=== PATIENT | female | born 1935 | race Caucasian/White ===

== ENCOUNTER → 2019-10-22 09:49 | Outpatient (BNVA) | payer MEDICARE, OTHER, SELFPAY | PROVIDERS: Visit Provider Family Medicine | DX: I10 Essential (primary) hypertension (principal); E03.9 Hypothyroidism, unspecified; E55.9 Vitamin D deficiency, unspecified | CPT/HCPCS: 80053; 80061; 82306; 84443; 85025 ==

== ENCOUNTER → 2020-04-08 10:20 | Outpatient (BNVA) | payer MEDICARE, OTHER, SELFPAY | PROVIDERS: PCP Nurse Practitioner Family; Visit Provider Nurse Practitioner Family | DX: E78.5 Hyperlipidemia, unspecified (principal); E03.9 Hypothyroidism, unspecified; E55.9 Vitamin D deficiency, unspecified; R73.9 Hyperglycemia, unspecified; J44.9 Chronic obstructive pulmonary disease, unspecified; R09.02 Hypoxemia | CPT/HCPCS: 80053; 80061; 82306; 82607; 83036; 84443; 85025 ==

== ENCOUNTER 2020-07-13 15:19 | Emergency (ER) | payer MEDICARE, OTHER, SELFPAY ==
[2020-07-13 15:25] VITALS: BP 138/99; PULSE 73; RESP 36; TEMP 36.2; O2SAT 96; BMI 33.2
--- NOTE | 2020-07-13 15:51 | XR_ITS ---
WS: [id number] XR chest 1V portable [id number] REASON FOR EXAM: SOB FINDINGS: Compared to previous examination on 07/31/2018 the appearance of the right lung is unchanged. On the left there is a moderate-sized effusion. There are consolidative changes in the left lower lung adjac ent to the effusion. Moderate degenerative changes in both shoulders and moderate degenerative spondylosis in the thoracic spine. XR/XR chest 1V portable [id number] IMPRESSION: No recent comparison examination. Moderate left pleural effusion and lung conso lidation of unknown chronicity.
--- NOTE | 2020-07-13 16:08 | ED_ITS ---
HPI - SOB/Dyspnea General: Chief Complaint: Shortness of Breath/Dyspnea Stated Complaint: SOB Time Seen by Provider: 07/13/20 15:25 Source: patient and EMS Mode of arrival: EMS Limitations: no limitations History of Present Illness: HPI Narrative: Patient was brought in by ambulance with complaints of shortness of breath. Most of the history was obtained from EMS and later from her son. The patient has apparently been complaining of shortness of breath for about 4 days. She is normally on oxygen at about 2 to 3 L/min. The onset and that she has had a fever. EMS arrived at the patient's residence she was not using her oxygen and her oxygen saturations were 72% on room air. She was placed on oxygen and her saturations increased into the mid 90s on 4 L of oxygen per minute. Patient states that she is short of breath, admits to using oxygen at home but did not tell me why she was not wearing it today. She also denies any pain at this time. Patient appears mildly confused but she is oriented to place and person. MD elicited complaint: shortness of breath and cough Associated symptoms: Deny abdominal pain, fever(s), nausea, palpitations, polydipsia, polyuria or vomiting Review of Systems General: Reports: 10 or more systems reviewed and unremarkable except in HPI and below Const: Denies: fever(s), chills or body aches Eyes: Denies: change in vision or blurry vision ENMT: Denies: throat pain, enlarged tonsils, odynophagia, hoarseness, mouth pain or swelling of lips/tongue Card: Denies: palpitations, irregular heart rhythm, edema or swelling of feet/ankles Resp: Reports: dyspnea; Denies: productive cough or non-productive cough GI: Denies: abdominal pain, nausea or vomiting : Denies: flank pain, difficulty voiding, dysuria, urinary frequency, urinary urgency or urinary hesitancy Musc: Denies: neck pain, back pain or extremity swelling Skin/Breast: Denies: rash, pruritus or erythema Neuro: Denies: headache(s), numbness in extremities or weakness in extremities Endo: Denies: polyuria, polydipsia or tired all the time FOR[facility]LY [facility] ED PFSH: Medical History (Reviewed 07/14/20 @ 02:05 by Charo Anguiano MD, [facility]) Alopecia Aortic stenosis COPD (chronic obstructive pulmonary disease) DJD (degenerative joint disease) Enrolled in chronic care management Fatty infiltration of liver Glaucoma Hx of small bowel obstruction Hyperlipidemia Hypothyroid Memory impairment KATHARINE (obstructive sleep apnea) Vitamin D deficiency Surgical History (Reviewed 07/14/20 @ 02:05 by Charo Anguiano MD, [facility]) Hx of hernia repair Family History (Reviewed 07/14/20 @ 02:05 by Charo Anguiano MD, [facility]) Other No pertinent family history Social History (Reviewed 07/14/20 @ 02:05 by Charo Anguiano MD, [facility]) Smoking and tobacco status: former smoker Quit status (tobacco): has quit using tobacco Year quit tobacco: 1999 Former quit date comment: PPD x 30 + yrs Second hand smoke exposure: No Alcohol intake: never Lives independently: Yes Household members: spouse Housing: House Marital status: Current occupational status: retired History of recent travel: No Current gender identity: Female Physical Exam Const: COMMON NORMALS: no acute distress, average body habitus, patient oriented x3, no limitations, healthy appearing, alert and well nourished HENMT: COMMON NORMALS: normocephalic, atraumatic and moist oral mucous membranes HEAD & SCALP: normocephalic and atraumatic Eye: COMMON NORMALS: Equal, round and reactive pupils present, EOMs intact bilaterally, conjunctivae normal and no scleral icterus CONJUNCTIVA: Yes conjunctivae normal PUPIL: Yes Equal, round and reactive pupils present Neck/C-Spine: COMMON NORMALS: no meningeal signs and no JVD Resp: COMMON NORMALS: normal respiratory effort, No retractions, No use of accessory muscles and percussion normal AUSCULTATION: diminished lung sounds PERCUSSION: percussion normal Cardio: COMMON NORMALS: no JVD, regular rate, regular rhythm, S1 normal heart sound present, S2 normal heart sound present, No gallops present (Cardio), No clicks present (Cardio), No murmurs present (Cardio), No rub (Cardio) and Peripheral pulses 2+ throughout RATE: regular rate RHYTHM: regular rhythm HEART SOUNDS: S1 normal heart sound present and S2 normal heart sound present PERIPHERAL PULSES: Peripheral pulses 2+ throughout GI: COMMON NORMALS: Normal to inspection, nondistended, normoactive bowel sounds present, Soft to palpation, non-tender, No hepatosplenomegaly present, no masses and no bruits PALPATION: Yes Soft to palpation and Yes No hepatosplenomegaly present Extremity: COMMON NORMALS: normal to inspection, full ROM, capillary refill normal, no calf tenderness and no pedal edema Neuro: COMMON NORMALS: patient oriented x3 SENSORIUM/ORIENTATION: Yes alert MENINGEAL SIGNS: Yes no meningeal signs Skin: COMMON NORMALS: no rashes or lesions noted, no wounds, turgor normal, no jaundice, no petechiae and no mottling GENERAL SKIN EXAM: no rashes or lesions noted and turgor normal Procedures Intubation Time out performed: Yes sedative: Etomidate Mg Given: 20 paralytic: Succinylcholine Mg Given: 140 Laryngoscope: Olivia Assist Device Used: other (Video-assisted) ET Tube Size: 8 ET Tube Uncuffed: Yes Tube Secured Depth (cm): 20 Tube Secured Location: lips Tube Placement Confirmation: visualized tube passing through cords, equal breath sounds bilaterally, no breath sounds over epigastrium and confirmation by capnometry Patient Tolerated Procedure: well Intubation Complications: none Course ED course: 84-year-old female patient who presented to the emergency department with difficulty breathing. Patient has a history of COPD and she gradually got more drowsy in the emergency department. Blood gas obtained showed she was in hypercapnic respiratory failure and she was emergently intubated and mechanically ventilated. Because there are no hospital beds available in this hospital she was transferred to [facility] for further evaluation and management in the ICU. Prior to intubation asked her son if he agreed to intubate and placed on mechanical ventilation, he wanted not to be a full code, and I agreed for us to do this. Consultations: Consultation #1: Discussed the patient with , hospitalist at [facility] and he kindly accepted the patient to his service Vital Signs: Vital signs: Vital Signs Temperature 98.2 F 07/14/20 01:22 Pulse Rate 65 07/14/20 01:22 Respiratory Rate 17 07/14/20 01:22 Blood Pressure 116/73 07/14/20 01:22 Pulse Oximetry 93 07/14/20 01:22 MDM - SOB/Dyspnea MDM Narrative: Medical decision making narrative: 84-year-old female patient who presented with COPD exacerbation and acute respiratory failure. She was intubated and mechanically ventilated and transferred to [facility] for further evaluation and management. Medical Records: Attestation: I reviewed the patient's medical records. Lab Data: Attestation: I reviewed the patient's lab results. Labs: Lab Results 07/13/20 07/13/20 07/13/20 Range/Units 16:22 16:22 16:22 WBC Cancelled Corrected WBC Cancelled RBC Cancelled Hgb Cancelled Hct Cancelled MCV Cancelled MCH Cancelled MCHC Cancelled RDW Cancelled Plt Count Cancelled MPV Cancelled Gran % Cancelled Neut % (Auto) Cancelled Lymph % (Auto) Cancelled Hays % (Auto) Cancelled Eos % (Auto) Cancelled Baso % (Auto) Cancelled Neut # (Auto) Cancelled Lymph # (Auto) Cancelled [place]ays # (Auto) Cancelled Eos # (Auto) Cancelled Baso # (Auto) Cancelled Absolute Gran (aut o) Cancelled Nucleated RBC % (a uto) Cancelled Nucleated RBCs # Cancelled Specimen Type Sample Site ABG pH (7.35-7.45) ABG pCO2 (35-45) mmHg ABG pO2 (80.0-100.0) mmH g ABG HCO3 (22-26) mmol/L ABG Base Excess (-2.0-2.0) mmol/ L Clement Test Hematocrit (37-47) % O2 Delivery Device O2 Liters/Min % Mechanical Rate FiO2 % Tidal Volume PEEP cmH20 Cost Accountant ID Sodium 139 (136-145) mmol/L Potassium 4.9 (3.5-5.1) mmol/L Chloride 98 (98-107) mmol/L Carbon Dioxide 35 H (22-29) mmol/L Anion Gap 10.9 (5-19) BUN 9 (8-23) mg/dL Creatinine 0.6 (0.5-0.9) mg/dL GFR Calculation Not Reportable Glucose 127 H (65-115) mg/dL Calculated Osmolal ity 288 (285-295) mOsm/k g Lactic Acid 0.8 (0.5-2.2) mmol/L Calcium 8.7 (8.5-10.5) mg/dL Total Bilirubin 0.3 (0.15-1.2) mg/dL AST 17 (0-32) U/L ALT 17 (0-33) U/L Alkaline Phosphata se 62 (35-105) IU/L Troponin T Baselin e (0-10) ng/L Troponin T 120 Min grand traverse (0-10) ng/L Delta Troponin T (0-10) ABS# NT-Pro-B Natriuret Pep 4743 H (0-450) pg/mL Total Protein 6.7 (6.6-8.7) g/dL Albumin 3.9 (3.5-5.2) g/dL Globulin 2.8 (1.3-4.6) g/dL Influenza Type A A g (Negative) Influenza Type B A g (Negative) SARS-CoV-2 Ag (Rap id) (Negative) 07/13/20 07/13/20 07/13/20 Range/Units 16:22 16:32 16:32 WBC Corrected WBC RBC Hgb Hct MCV MCH MCHC RDW Plt Count MPV Gran % Neut % (Auto) Lymph % (Auto) Hays % (Auto) Eos % (Auto) Baso % (Auto) Neut # (Auto) Lymph # (Auto) Hays # (Auto) Eos # (Auto) Baso # (Auto) Absolute Gran (aut o) Nucleated RBC % (a uto) Nucleated RBCs # Specimen Type Sample Site ABG pH (7.35-7.45) ABG pCO2 (35-45) mmHg ABG pO2 (80.0-100.0) mmH g ABG HCO3 (22-26) mmol/L ABG Base Excess (-2.0-2.0) mmol/ L Clement Test Hematocrit (37-47) % O2 Delivery Device O2 Liters/Min % Mechanical Rate FiO2 % Tidal Volume PEEP cmH20 Cost Accountant ID Sodium (136-145) mmol/L Potassium (3.5-5.1) mmol/L Chloride (98-107) mmol/L Carbon Dioxide (22-29) mmol/L Anion Gap (5-19) BUN (8-23) mg/dL Creatinine (0.5-0.9) mg/dL GFR Calculation Glucose (65-115) mg/dL Calculated Osmolal ity (285-295) mOsm/k g Lactic Acid (0.5-2.2) mmol/L Calcium (8.5-10.5) mg/dL Total Bilirubin (0.15-1.2) mg/dL AST (0-32) U/L ALT (0-33) U/L Alkaline Phosphata se (35-105) IU/L Troponin T Baselin e 20 H (0-10) ng/L Troponin T 120 Min grand traverse (0-10) ng/L Delta Troponin T (0-10) ABS# NT-Pro-B Natriuret Pep (0-450) pg/mL Total Protein (6.6-8.7) g/dL Albumin (3.5-5.2) g/dL Globulin (1.3-4.6) g/dL Influenza Type A A g Negative (Negative) Influenza Type B A g Negative (Negative) SARS-CoV-2 Ag (Rap id) Negative (Negative) 07/13/20 07/13/20 07/13/20 Range/Units 18:37 21:34 23:05 WBC 9.6 Corrected WBC RBC 4.99 Hgb 14.6 Hct 50.9 H MCV 102.0 H MCH 29.3 MCHC 28.7 L RDW 13.3 Plt Count 189 MPV 9.5 Gran % Neut % (Auto) 90.1 Lymph % (Auto) 5.5 Hays % (Auto) 1.6 Eos % (Auto) 0.2 Baso % (Auto) 0.4 Neut # (Auto) 8.62 H Lymph # (Auto) 0.5 L Hays # (Auto) 0.2 Eos # (Auto) 0.0 Baso # (Auto) 0.0 Absolute Gran (aut o) Nucleated RBC % (a uto) 0 Nucleated RBCs # 0.0 Specimen Type Arterial Sample Site Brachial, right ABG pH 7.13 L* (7.35-7.45) ABG pCO2 112.0 H* (35-45) mmHg ABG pO2 82.7 (80.0-100.0) mmH g ABG HCO3 37.3 H (22-26) mmol/L ABG Base Excess 3.9 H (-2.0-2.0) mmol/ L Clement Test N/a Hematocrit 44.4 (37-47) % O2 Delivery Device Nc O2 Liters/Min 4.0 % Mechanical Rate FiO2 % Tidal Volume PEEP cmH20 Cost Accountant ID Harkr Sodium (136-145) mmol/L Potassium (3.5-5.1) mmol/L Chloride (98-107) mmol/L Carbon Dioxide (22-29) mmol/L Anion Gap (5-19) BUN (8-23) mg/dL Creatinine (0.5-0.9) mg/dL GFR Calculation Glucose (65-115) mg/dL Calculated Osmolal ity (285-295) mOsm/k g Lactic Acid (0.5-2.2) mmol/L Calcium (8.5-10.5) mg/dL Total Bilirubin (0.15-1.2) mg/dL AST (0-32) U/L ALT (0-33) U/L Alkaline Phosphata se (35-105) IU/L Troponin T Baselin e (0-10) ng/L Troponin T 120 Min grand traverse 19.36 H (0-10) ng/L Delta Troponin T -0.64 L (0-10) ABS# NT-Pro-B Natriuret Pep (0-450) pg/mL Total Protein (6.6-8.7) g/dL Albumin (3.5-5.2) g/dL Globulin (1.3-4.6) g/dL Influenza Type A A g (Negative) Influenza Type B A g (Negative) SARS-CoV-2 Ag (Rap id) (Negative) 07/14/20 Range/Units 01:39 WBC Corrected WBC RBC Hgb Hct MCV MCH MCHC RDW Plt Count MPV Gran % Neut % (Auto) Lymph % (Auto) Hays % (Auto) Eos % (Auto) Baso % (Auto) Neut # (Auto) Lymph # (Auto) Hays # (Auto) Eos # (Auto) Baso # (Auto) Absolute Gran (aut o) Nucleated RBC % (a uto) Nucleated RBCs # Specimen Type Arterial Sample Site Radial, right ABG pH 7.39 (7.35-7.45) ABG pCO2 52.5 H (35-45) mmHg ABG pO2 80.9 (80.0-100.0) mmH g ABG HCO3 31.4 H (22-26) mmol/L ABG Base Excess 4.9 H (-2.0-2.0) mmol/ L Clement Test Pos Hematocrit 44.3 (37-47) % O2 Delivery Device Vent O2 Liters/Min % Mechanical Rate 16.0 FiO2 40.0 % Tidal Volume 0.35 PEEP 8.0 cmH20 Cost Accountant ID Harkr Sodium (136-145) mmol/L Potassium (3.5-5.1) mmol/L Chloride (98-107) mmol/L Carbon Dioxide (22-29) mmol/L Anion Gap (5-19) BUN (8-23) mg/dL Creatinine (0.5-0.9) mg/dL GFR Calculation Glucose (65-115) mg/dL Calculated Osmolal ity (285-295) mOsm/k g Lactic Acid (0.5-2.2) mmol/L Calcium (8.5-10.5) mg/dL Total Bilirubin (0.15-1.2) mg/dL AST (0-32) U/L ALT (0-33) U/L Alkaline Phosphata se (35-105) IU/L Troponin T Baselin e (0-10) ng/L Troponin T 120 Min grand traverse (0-10) ng/L Delta Troponin T (0-10) ABS# NT-Pro-B Natriuret Pep (0-450) pg/mL Total Protein (6.6-8.7) g/dL Albumin (3.5-5.2) g/dL Globulin (1.3-4.6) g/dL Influenza Type A A g (Negative) Influenza Type B A g (Negative) SARS-CoV-2 Ag (Rap id) (Negative) Imaging Data^: CXR: Attestation: I personally reviewed and interpreted this imaging study as follows: Radiologist's impression: [address] [address] XRay Report Signed Patient: Nellie Sevilla #: [id number] : 5Acct#:[id number] Age/Sex: 84 / FADM Date: 07/13/20 Loc: ERRoom/Bed: Attending Dr: Ordering Provider/Ordering MD: Charo Anguiano MD, [facility] Date of Service: 07/13/20 Procedure(s): XR chest 1V portable [id number] Accession Number(s): [id number] Report Number: [id number] WS: [id number] XR chest 1V portable [id number] REASON FOR EXAM: SOB FINDINGS: Compared to previous examination on 07/31/2018 the appearance of the right lung is unchanged. On the left there is a moderate-sized effusion. There are consolidative changes in the left lower lung adjacent to the effusion. Moderate degenerative changes in both shoulders and moderate degenerative spondylosis in the thoracic spine. XR/XR chest 1V portable [id number] IMPRESSION: No recent comparison examination. Moderate left pleural effusion and lung consolidation of unknown chronicity. Dictated By:Abelardo Nuno Jr, MD Signed By:Abelardo Nuno Jr MDSigned Date/Time:07/13/201652 DD/ 48 CT Chest: Attestation: I personally reviewed and interpreted this imaging study as follows: Radiologist's impression: [address] [address] [address] Scan Report Signed Patient: Nellie Sevilla #: [id number] : 5Acct#:[id number] Age/Sex: 84 / FADM Date: 07/13/20 Loc: ERRoom/Bed: Attending Dr: Ordering Provider/Ordering MD: Charo Anguiano MD, [facility] Date of Service: 07/13/20 Procedure(s): CT chest w con* [id number] Accession Number(s): [id number] Report Number: [id number] PROCEDURE INFORMATION: Exam: CT Chest With Contrast Exam date and time: 07/13/2020 8:08 PM Age: 84 years old Clinical indication: Shortness of breath; Additional info: SOB TECHNIQUE: Imaging protocol: Computed tomography of the chest with intravenous contrast. Radiation optimization: All CT scans at this facility use at least one of these dose optimization techniques: automated exposure control; mA and/or kV adjustment per patient size (includes targeted exams where dose is matched to clinical indication); or iterative reconstruction. Contrast material: [id number]; Contrast volume: 95 ml; Contrast route: INTRAVENOUS (IV); COMPARISON: CR XR chest 1V portable [id number] 07/13/2020 4:24 PM RADIATION DOSE METRICS: Total DLP (mGy-cm): 793.57 FINDINGS: Lungs: Rare calcified granuloma of antecedent disease. Minimal dependent atelectasis lung bases, left volume greater than right. Pleural space: Small left pleural effusion. Scant right pleural effusion. Heart: Cardiomegaly. Advanced 3 vessel coronary artery disease. Calcified mitral annulus. No visible pericardial effusion. Mediastinal space: Patulous esophagus with fluid levels. Potential achalasia. Aorta: The thoracic aorta is nonaneurysmal. No visible intimal flap or dissection. Lymph nodes: No visible active mediastinal or hilar lymphadenopathy. Liver: Small simple hepatic cyst dome right hepatic lobe. Rare hepatic calcified granuloma. Spleen: Small splenule. Spleen otherwise unremarkable. Bones/joints: Age-appropriate degenerative disease of the spine with osteopenia. No visible acute osseous abnormality. Soft tissues: Obesity. CT/CT chest w con* [id number] IMPRESSION: 1. Small left pleural effusion and scant right. 2. Mild dependent atelectasis in the lung bases, left greater right. 3. Evidence of antecedent granulomatous disease. 4. Advanced 3 vessel coronary artery disease. 5. Cardiomegaly. 6. Patulous esophagus with air-fluid levels. Potential achalasia. Radiation Dose CTDIVOL = (mGy): DLP = 793.57 (mGy-cm) Dictated By:Francis Garcia Signed By:Vahid Garcia Date/Time:07/13/202122 DD/ 22 EKG Data^: EKG 1: Attestation: I personally reviewed and interpreted this EKG as follows: EKG Interpretation Date: 07/13/20 EKG interpretation time: 19:05 Prior EKG tracings: not available for review Interpretation: Sinus rhythm. Heart rate 74 bpm. Left axis deviation. No ST changes. EKG 2: Attestation: I personally reviewed and interpreted this EKG as follows: EKG Interpretation Date: 07/13/20 EKG interpretation time: 22:50 Prior EKG tracings: available for review Interpretation: Normal sinus rhythm. Heart rate 82 bpm. Left axis deviation. Unchanged from earlier. Discharge Plan Discharge Patient Disposition: Xfer Short-Term Hosp Clinical Impression: Acute hypercapnic respiratory failure, Acute exacerbation of chronic obstructive airways disease, Acute metabolic encephalopathy Condition: Stable Discharge Orders: Transfer Out of Facility (Order); Ordered 07/14/20 Ordered By: Charo Anguiano Referrals: Jina Ramirez FNP [Primary Care Provider] - Coding Level of Care Code ED Retail Services Professional for Chg Radha
[2020-07-13 16:51] LABS: Lactic Sepsis W/Reflex 0.8 mmol/L (0.5-2.2)
[2020-07-13 16:57] LABS: Alanine Aminotransferase 17 U/L (0-33); Albumin Level 3.9 g/dL (3.5-5.2); Alkaline Phosphatase 62 IU/L (35-105); Aspartate Amino Transferase 17 U/L (0-32); Blood Urea Nitrogen 9 mg/dL (8-23); Calcium 8.7 mg/dL (8.5-10.5); Carbon Dioxide 35 mmol/L (22-29); Chloride 98 mmol/L (98-107); Globulin 2.8 g/dL (1.3-4.6); Glucose 127 mg/dL (65-115); NT Pro B Type Natriuretic Pept 4743 pg/mL (0-450); Osmolality Calculated 288 mOsm/kg (285-295); Sodium 139 mmol/L (136-145); Total Bilirubin 0.3 mg/dL (0.15-1.2); Total Protein 6.7 g/dL (6.6-8.7)
[2020-07-13 17:29] LABS: Anion Gap 10.9 (5-19); Potassium 4.9 mmol/L (3.5-5.1)
--- NOTE | 2020-07-13 18:04 | ECG_ITS ---
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 Measurements Intervals [place] Rate: 74 P: 63 SD: 198 QRS: -51 QRSD: 103 T: 12 QT: 356 QTc: 395 Interpretive Statements SINUS RHYTHM POSSIBLE LEFT ATRIAL ENLARGEMENT [-0.1mV P WAVE IN V1/V2] LEFT AXIS DEVIATION [QRS AXIS < -30] POSSIBLE ANTERIOR MYOCARDIAL INFARCTION , OF INDETERMINATE AGE [30 ms Q WAVE IN V3/V4, OR R < 0.2 mV IN V4] Compared to ECG 01/02/2015 00:03:10 Myocardial infarct finding now present T-wave abnormality no longer present Electronically Signed On 07-13-2020 19:29:20 COUNTER INTELLIGENCE TECHNICIAN by Hai Vicente M.D. [id number]
[2020-07-13 18:07] LABS: Influenza A by IFA Negative (Negative); Influenza B by IFA Negative (Negative); SARS Covid-2 Antigen Negative (Negative)
[2020-07-13 18:25] LABS: Troponin(5th) Baseline 20 ng/L (0-10)
[2020-07-13 18:57] VITALS: BP 111/48; PULSE 71; RESP 21; O2SAT 96
[2020-07-13 18:58] LABS: Troponin 5 2HR 19.36 ng/L (0-10)
[2020-07-13 19:02] LABS: Troponin 5 2HR Delta -0.64 ABS# (0-10)
--- NOTE | 2020-07-13 19:33 | CTR_ITS ---
PROCEDURE INFORMATION: Exam: CT Chest With Contrast Exam date and time: 07/13/2020 8:08 PM Age: 84 years old Clinical indication: Shortness of breath; Additional info: SOB TECHNIQUE: Imaging protocol: Computed tomography of the chest with intravenous contrast. Radiation optimization: All CT scans at this facility use at least one of these dose optimization techniques: automated exposure control; mA and/or kV adjustment per patient size (includes targeted exams where dose is matched to clinical indication); or iterative reconstruction. Contrast material: [id number]; Contrast volume: 95 ml; Contrast route: INTRAVENOUS (IV); COMPARISON: CR XR chest 1V portable [id number] 07/13/2020 4:24 PM RADIATION DOSE METRICS: Total DLP (mGy-cm): 793.57 FINDINGS: Lungs: Rare calcified granuloma of antecedent disease. Minimal dependent atelectasis lung bases, left volume greater than right. Pleural space: Small left pleural effusion. Scant right pleural effusion. Heart: Cardiomegaly. Advanced 3 vessel coronary artery disease. Calcified mitral annulus. No visible pericardial effusion. Mediastinal space: Patulous esophagus with fluid levels. Potential achalasia. Aorta: The thoracic aorta is nonaneurysmal. No visible intimal flap or dissection. Lymph nodes: No visible active mediastinal or hilar lymphadenopathy. Liver: Small simple hepatic cyst dome right hepatic lobe. Rare hepatic calcified granuloma. Spleen: Small splenule. Spleen otherwise unremarkable. Bones/joints: Age-appropriate degenerative disease of the spine with osteopenia. No visible acute osseous abnormality. Soft tissues: Obesity. CT/CT chest w con* [id number] IMPRESSION: 1. Small left pleural effusion and scant right. 2. Mild dependent atelectasis in the lung bases, left greater right. 3. Evidence of antecedent granulomatous disease. 4. Advanced 3 vessel coronary artery disease. 5. Cardiomegaly. 6. Patulous esophagus with air-fluid levels. Potential achalasia. Radiation Dose CTDIVOL = (mGy): DLP = 793.57 (mGy-cm)
[2020-07-13 19:53] VITALS: BP 121/63; PULSE 76; RESP 30; O2SAT 99
[2020-07-13] MEDS: iohexol 300 mg/mL 100 mL Btl IV (20:56)
[2020-07-13 21:40] LABS: Basophils % 0.4 %; Eosinophils % 0.2 %; Hematocrit 50.9 % (37.0-47.0); Hemoglobin 14.6 g/dL (11.5-15.3); Lymphocytes # 0.5 10^3/uL (0.8-4.8); Lymphocytes % 5.5 %; Mean Corpuscular HGB Conc 28.7 g/dL (30.0-36.0); Mean Corpuscular Hemoglobin 29.3 pg (28.0-34.0); Mean Platelet Volume 9.5 fL (7.4-10.4); Monocytes # 0.2 10^3/uL (0.2-0.9); Monocytes % 1.6 %; Neutrophils # 8.62 10^3/uL (1.8-7.7); Neutrophils % 90.1 %; Nucleated Red Blood Cells % 0 %; Platelet Count 189 10^3/cmm (130-400); Red Blood Count 4.99 10^6/uL (4.1-5.3); Red Cell Distribution Width 13.3 % (12.1-15.1); White Blood Count 9.6 10^3/uL (4.0-10.0)
[2020-07-13 21:54] VITALS: BP 115/61; PULSE 78; RESP 30; O2SAT 97
--- NOTE | 2020-07-13 22:04 | ECG_ITS ---
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 Measurements Intervals [place] Rate: 82 P: 25 AR: 215 QRS: -59 QRSD: 104 T: 74 QT: 355 QTc: 415 Interpretive Statements SINUS RHYTHM WITH FIRST DEGREE AV BLOCK LEFT AXIS DEVIATION [QRS AXIS < -30] POSSIBLE ANTERIOR MYOCARDIAL INFARCTION , PROBABLY OLD [30 ms Q WAVE IN V3/V4, OR R < 0.2 mV IN V4] Compared to ECG 07/13/2020 19:05:46 First degree AV block now present Myocardial infarct finding still present Electronically Signed On 07-14-2020 10:20:31 SUPERVISOR TICKET SALES by Suraj Treviño M.D. [id number]
[2020-07-13 23:18] LABS: Arterial Blood Gas Hematocrit 44.4 % (37-47); Base Excess ABG 3.9 mmol/L (-2.0-2.0); Blood Gas Operator Identificat HARKR; Blood Gas Sample Site Brachial, right; Blood Gas Sample Type Arterial; HCO3 ABG 37.3 mmol/L (22-26); Oxygen Device NC; PO2 ABG 82.7 mmHg (80.0-100.0)
[2020-07-13 23:20] LABS: ABG PH Result 7.13 (7.35-7.45)
--- NOTE | 2020-07-13 23:31 | XR_ITS ---
WS: [id number] Portable AP upright chest, 07/13/2020, 2348 hours. Clinical Data: tube placement Comparison: Portable chest, 07/13/2020, 1626 hours. Findings: The endotracheal tube is above the bryce and the enteric tube ends in the region of the st omach. No nodules or masses are seen. The heart is normal. The pulmonary vascularity is not increase d. No pneumothorax is seen. The consolidation and/or effusion in the retrocardiac region of the left lower lobe remains unchanged. There are monitor leads on the chest wall. XR/XR chest 1V portable [id number] Impression: Satisfactory placement of enteric tube and endotracheal tube.
[2020-07-13] MEDS: succinylcholine 20 mg/mL SDV 10mL 140 MG IVP (23:35)
[2020-07-13] MEDS: propofol 1,000 MG/100 ML INJ 4.6 MG IV (23:42)
[2020-07-14 00:06] VITALS: PULSE 76; RESP 16; O2SAT 93
[2020-07-14] MEDS: ipratropium-albuterol 3 mL Neb INHALATION (00:06)
[2020-07-14] MEDS: HYDROmorphone 1 mg/mL INJ 1 mL 0.5 MG IVP (00:41)
[2020-07-14] MEDS: cefTRIAXone 1,000 MG in sodium chloride 0.9% (plus) 50 ML 100 MG IV (00:46)
[2020-07-14 01:15] VITALS: BP 84/54; PULSE 62; O2SAT 95
[2020-07-14 01:22] VITALS: BP 116/73; PULSE 65; RESP 17; TEMP 36.8; O2SAT 93
[2020-07-14] MEDS: vecuronium 10 mg SDV IVP (01:30)
[2020-07-14 01:45] VITALS: BP 91/57; PULSE 63; RESP 20; TEMP 36.8
[2020-07-14 01:50] LABS: ABG PCO2 52.5 mmHg (35-45); ABG PH Result 7.39 (7.35-7.45); Arterial Blood Gas Hematocrit 44.3 % (37-47); Base Excess ABG 4.9 mmol/L (-2.0-2.0); Blood Gas Allen Test Pos; Blood Gas Operator Identificat HARKR; Blood Gas Sample Site Radial, right; Blood Gas Sample Type Arterial; Blood Gas Tidal Volume 0.35; HCO3 ABG 31.4 mmol/L (22-26); Oxygen Device VENT; PO2 ABG 80.9 mmHg (80.0-100.0)
--- NOTE | 2020-07-14 03:16 | PC.SOCIAL ---
Accepted at [facility] in [facility] by Dr. Walker
--- NOTE | 2020-07-14 03:27 | PC.NURSE ---
pt needed to be intubated myself, staff, and Dr. Anguiano at bedside. Etomidate 20mg given, [id number] mg, and 8 ET tube placed 20@ lip. OG tube and 16 F gurrola placed. X-ray done. propofol 10mcg/kg/mg drip. hydromorphone 0.5mg and Solu Medrol 125mg given. Vecuronium 10mg given. Flight transport here, pt vitals stable on departure.
== END 2020-07-14 01:50 | disposition short-term general hospital (02) ==
PROVIDERS: Emergency Provider Family Medicine; PCP Nurse Practitioner Family
DX: J96.02 Acute respiratory failure with hypercapnia (principal); J44.1 Chronic obstructive pulmonary disease with (acute) exacerbation; G93.41 Metabolic encephalopathy; E78.5 Hyperlipidemia, unspecified; Z87.891 Personal history of nicotine dependence
CPT/HCPCS: 12345; 31500; 36415; 36600; 71045; 71260; 80053; 82803; 83605; 83880; 84484; 85025; 87426; 87804; 93005; 94002; 94640; 94799; 96365; 96366; 96368; 96375; 99282; 99291; J0330; J0696; J1170; J2704; J2930; J3490; Q9967